=== PATIENT | female | born 1960 | race Caucasian/White ===

== ENCOUNTER 2016-12-30 05:33 | Inpatient (IN) ==
[2016-12-25 12:13] LABS: Basophils % 0.4 % (0.0-0.8); Eosinophils # 0.1 10*3/uL (0.0-0.87); Hemoglobin 13.3 GM/DL (12.0-16.0); Immature Granulocytes % 0.4 %; Immature Granulocytes Absolute 0.04 #; Lymphocytes # 3.4 10*3/uL (1.4-4.0); Lymphocytes % 37.5 % (21.3-54.2); Mean Corpuscular HGB Conc 33.3 GM/DL (32-36); Mean Corpuscular Hemoglobin 29 PG (27-34); Mean Corpuscular Volume 88.3 FL (87-102); Monocytes # 0.5 10*3/uL (0.11-0.8); Monocytes % 5.7 % (1.7-12.7); Platelet Count 425 T/CUMM (130-400); Red Blood Count 4.53 MC/CUMM (3.8-5.5); Red Cell Distribution Width 13.4 % (9.3-17.3); White Blood Count 9.1 T/CUMM (4-12)
[2016-12-25 12:25] LABS: PT Patient Result 10.4 SECS; Partial Thromboplastin Time 26.5 SECS (0-40)
--- NOTE | 2016-12-25 12:32 | EKG Report ---
Stationary ECG Study [facility] Test Date: 12/25/2016 12:32:04 PM Pat Name: ASHLEY MOY Department: Room: Gender: F Executive Candidate Developer: JACE UNDERWOOD [birth year] : 1960 Requested by: Felix Villela Order Number: [id number] Reading MD: SAMIR LEIGH Intervals Harmony Rate: 74 P: 74 CO: 164 QRS: 107 QRSD: 98 T: 69 QT: 386 QTc: 413 Interpretive Statements SINUS RHYTHM INDETERMINATE AXIS Electronically Signed On 12-25-16 13:14:54 CDT by SAMIR LEIGH [email or web address]
[2016-12-25 12:47] LABS: Apearance,Urine Slightly Hazy (Clear); Bilirubin,Urine Negative (Negative); Blood, Urine Negative (Negative); Glucose,Urine (UA) Negative (Negative); Ketones,Urine Negative (Negative); Mucus,Urine Occasional /LPF (Occasional); Nitrite,Urine Negative (Negative); Protein,Urine 30 MG/DL; RBC,Urine 4 /HPF (0-4); Squamous Epithelial Cell,Urine Occasional /HPF (0-10); Urine Color Yellow (Yellow); Urine Specific Gravity 1.016 (1.001-1.035); Urine Urobilinogen < 2.0 EU/DL (0.2-1.0); WBC,Urine 38 /HPF (0-6)
--- NOTE | 2016-12-25 12:50 | XRay Report ---
XR chest 2V Indication: Preop respiratory evaluation. Comparison: None. Technique: PA and lateral chest x-ray was performed. Findings: The heart size appears within normal limits. The mediastinal contour and hilar structures demonstrate no significant abnormalities. Calcified pulmonary nodule within the lateral aspect of the mid left lung is demonstrated. Partially calcified left hilar lymph nodes are present. Bones and soft tissues demonstrate no evidence of acute pathology. Impression: 1. No active cardiopulmonary disease. 2. Findings compatible prior granulomatous disease. 12/25/2016 12:37 PM PROCEDURE INTERPRETED AT [facility] DEPARTMENT OF RADIOLOGY Final Report Signed by: Dr. Juan Inman
[2016-12-25 12:58] LABS: Albumin 4.1 G/DL (3.4-5.0); Bilirubin,Total 0.6 MG/DL (0.2-1.0); Calcium 9.4 MG/DL (8.5-10.1); Osmolality,Calculated 279.3 MOS/KG (273-304); Potassium 4.3 MMOL/L (3.5-5.1); Total Protein 7.5 G/DL (6.4-8.3)
[2016-12-30] MEDS ORDERED: VANCOMYCIN INJ 1,000 MG in SODIUM CHLORIDE 0.9% 250 ML IV ONE (06:00)
[2016-12-30] MEDS ORDERED: SCOPOLAMINE 1.5 MG PATCH TRANSDERM ONE ×2 (06:22→06:26)
[2016-12-30] MEDS ORDERED: TRANEXAMIC ACID 1,000 MG/10 ML VIAL IV ONE (06:22)
[2016-12-30] MEDS ORDERED: SODIUM CHLORIDE 0.9% 100 ML IV ONE (06:26)
[2016-12-30] MEDS ORDERED: VANCOMYCIN 1,000 MG VIAL ONE (06:26)
[2016-12-30] MEDS ORDERED: ceFAZolin 1,000 MG VIAL ONE (06:26)
[2016-12-30] MEDS ORDERED: LACTATED RINGERS 1,000 ML IV SCH (06:30)
--- NOTE | 2016-12-30 06:32 | History and Physical Update ---
History and Physical Update - History and Physical H&P was reviewed, the patient examined and there: are no changes in the patients condition since last H&P was completed.
[2016-12-30] MEDS ORDERED: BACITRACIN OINT 0.9 GM PACK TOP ONE (06:43)
[2016-12-30] MEDS ORDERED: PROMETHAZINE 25 MG/1 ML VIAL ONE (06:57)
[2016-12-30] MEDS ORDERED: ONDANSETRON 4 MG/2 ML VIAL ONE (06:57)
[2016-12-30] MEDS ORDERED: GLYCOPYRROLATE 0.4 MG/2 ML VIAL ONE (06:57)
[2016-12-30] MEDS ORDERED: DEXAMETHASONE 10 MG/1 ML VIAL ONE (06:57)
[2016-12-30] MEDS ORDERED: PHENYLEPHRINE 1 MG/10 ML SYRINGE IV ONE (06:57)
[2016-12-30 08:40] LABS: Apearance,Urine CLEAR (Clear); Bilirubin,Urine Negative (Negative); Blood, Urine Negative (Negative); Glucose,Urine (UA) Negative (Negative); Ketones,Urine Negative (Negative); Mucus,Urine Occasional /LPF (Occasional); Nitrite,Urine Negative (Negative); Protein,Urine Negative; RBC,Urine 1 /HPF (0-4); Squamous Epithelial Cell,Urine Occasional /HPF (0-10); Urine Color Straw (Yellow); Urine Urobilinogen < 2.0 EU/DL (0.2-1.0); WBC,Urine <1 /HPF (0-6)
[2016-12-30] MEDS ORDERED: oxyCODONE IR 5 MG TABLET PO PRN ×2 (08:44)
[2016-12-30] MEDS ORDERED: diphenhydrAMINE CAP 25 MG CAPSULE PO PRN (08:44)
[2016-12-30] MEDS ORDERED: MAGNESIUM HYDROXIDE SUSP 30 ML UDCUP PO PRN (08:44)
[2016-12-30] MEDS ORDERED: ONDANSETRON 4 MG/2 ML VIAL IV PRN (08:44)
[2016-12-30] MEDS ORDERED: MIDAZOLAM 2 MG/2 ML VIAL ONE ×2 (08:48→08:49)
[2016-12-30] MEDS ORDERED: SODIUM CHLORIDE 0.9% 200 ML IV ONE (08:49)
[2016-12-30] MEDS ORDERED: LACTATED RINGERS 1,000 ML IV ONE (08:49)
[2016-12-30] MEDS ORDERED: fentaNYL 100 MCG/2 ML VIAL ONE (08:49)
[2016-12-30] MEDS ORDERED: KETAMINE 500 MG/10 ML VIAL ONE (08:49)
[2016-12-30] MEDS ORDERED: MORPHINE 2 MG/1 ML SYRINGE IV PRN ×2 (08:49)
--- NOTE | 2016-12-30 08:52 | Operative Note ---
Date of procedure: 12/30/16 Procedure: DIAGNOSIS: Bilateral hip primary osteoarthritis PROCEDURE: Right total hip arthroplasty (CPT#78651) SURGEON: Ameya ASST: Maximus Srinivasan ANESTHESIA: Spinal PROCEDURE and FINDINGS: After adequate anesthesia was induced, the patient was placed in lateral decubitus position. Left lower extremities prepped and draped in usual sterile fashion. Posteriolateral approach to the hip was made. Skin, subcutaneous tissue and deep fascia was incised longitudinally. Gluteus sera muscle belly was split in line with its fibers. Piriformis, external rotators and capsule were taken down as a single layer as an inverted L shaped capsulotomy. Hip was dislocated. Templated femoral neck cut was made. Acetabulum was prepared by sequentially reaming to 51 mm. A 52 mm Continuum acetabular shell was press-fit with excellent stability. 1 6.5 millimeter screw was placed with an excellent bite. 32 mm neutral Longevity liner was placed with a dome hole plug. Femur was prepared sequentially with the box osteotome, canal finder and sequential broaches to 14. Components were trialed. A size 14 Versys fiber metal tapered stem was press-fit. A 32-3.5 mm head was placed. The component was stable posteriorly and anteriorly. Capsule and external rotators were repaired with #5 Tycron. Deep fascia was closed with 0 Vicryl [id number] suture. Subcutaneous tissue was closed deep with a 2-0 Vicryl runner and superficially with 3-0 interrupted buried sutures. Skin was closed with rosie. Bacitracin and a sterile occlusive dressing was applied. Surgeon / Physician: Felix Hou Jr. Results - Labs CBC & BMP: 12/25/16 11:56 12/25/16 11:56 Discharge Plan - Discharge Medications No Action Amitriptyline [Elavil] 25 mg PO DAILY Atorvastatin [Lipitor] 10 mg PO BEDTIME Esomeprazole Magnesium [Nexium] 40 mg PO DAILY Ibuprofen 200 mg PO DIRECTED Multivitamin [One Daily Multivitamin] 1 each PO DAILY hydroCHLOROthiazide [Hydrochlorothiazide] 1 tablet PO DIRECTED - Follow Up or Referral - Forms/Instructions
[2016-12-30] MEDS ORDERED: hydroCHLOROthiazide 25 MG TABLET PO PRN (09:00)
--- NOTE | 2016-12-30 09:45 | XRay Report ---
XR hip 1V RT Indication: Joint replacement. Right hip 1 view: Right CANDICE is present with soft tissue emphysema and skin rosie overlying the operative site. Alignment is normal. No periprosthetic fracture. Impression: Anatomic alignment with immediate postop changes of CANDICE noted above. PROCEDURE INTERPRETED AT [facility] DEPARTMENT OF RAD[facility]OLOG[facility] Final Report Signed by: Brid John M.D.
[2016-12-30] MEDS: LACTATED RINGERS 1,000 ML IV SCH ×3 (10:06→16:00)
[2016-12-30] MEDS: AMITRIPTYLINE 25 MG TABLET PO SCH (10:06)
[2016-12-30] MEDS: DOCUSATE SODIUM 100 MG CAPSULE PO SCH ×2 (10:06→22:25)
[2016-12-30] MEDS: MULTIVITAMIN (CENTRUM) TABLET PO SCH (10:06)
[2016-12-30] MEDS: PANTOPRAZOLE 40 MG TABLET PO SCH (10:07)
[2016-12-30] MEDS: KETOROLAC 30 MG/1 ML VIAL IV SCH ×3 (10:07→22:24)
--- NOTE | 2016-12-30 11:12 | Anesthesia Post-Op ---
Anesthesia Post OP - Post Ansesthetic Evaluation Patient seen in post op: Yes Resp: within normal limits CV: within normal limits Mental: within normal limits Temp: within normal limits Bbsy-Rh-Mhigqnyrl: within normal limits Nausea and Vomiting: within normal limits Pain: within normal limits
[2016-12-30] MEDS: ACETAMINOPHEN 500 MG TABLET PO SCH ×2 (12:10→17:52)
[2016-12-30] MEDS: ceFAZolin 2,000 MG in PREMIX 1 EACH IV SCH ×2 (12:10→22:29)
--- NOTE | 2016-12-30 17:11 | Orthopedic Progress Note ---
Orthopedics - Subjective Interval history: Comfortable. Sitting up in a chair. She is noticed a difference in her hip. She can flex extend her toes and ankles without difficulty. Plan: Decrease IV fluids. Continue with orders. Exam - Constitutional Vitals: Period Temp Pulse Resp BP Sys/Fabian Pulse Ox Last 24 Hr 97.0 F-98.4 F 59-77 16-20 88-111/49-74 96-100 Results - Labs CBC & BMP: 12/25/16 11:56 12/25/16 11:56
[2016-12-30] MEDS: ATORVASTATIN 10 MG TABLET PO SCH (22:25)
[2016-12-30] MEDS ORDERED: ceFAZolin 2,000 MG in PREMIX 1 EACH IV ONE (22:30)
[2016-12-31] MEDS: ACETAMINOPHEN 500 MG TABLET PO SCH ×2 (01:27→05:52)
[2016-12-31] MEDS: FONDAPARINUX 2.5 MG/0.5 ML SYRINGE SUBCUT SCH (03:29)
[2016-12-31] MEDS: KETOROLAC 30 MG/1 ML VIAL IV SCH (03:30)
[2016-12-31 05:19] LABS: Basophils % 0.1 % (0.0-0.8); Hematocrit 31.9 VOL% (35.7-47.0); Hemoglobin 10.4 GM/DL (12.0-16.0); Immature Granulocytes % 0.5 %; Immature Granulocytes Absolute 0.07 #; Lymphocytes # 2.9 10*3/uL (1.4-4.0); Mean Corpuscular HGB Conc 32.6 GM/DL (32-36); Mean Corpuscular Hemoglobin 30 PG (27-34); Mean Corpuscular Volume 90.4 FL (87-102); Mean Platelet Volume 10.3 FL (9.6-12.0); Monocytes # 0.9 10*3/uL (0.11-0.8); Monocytes % 6.3 % (1.7-12.7); Neutrophils # 9.9 10*3/uL (1.4-7.4); Neutrophils % 72.1 % (38.7-73.9); Platelet Count 348 T/CUMM (130-400); Red Blood Count 3.53 MC/CUMM (3.8-5.5); Red Cell Distribution Width 13.6 % (9.3-17.3); White Blood Count 13.7 T/CUMM (4-12)
[2016-12-31 05:45] LABS: Calcium 8.6 MG/DL (8.5-10.1); Osmolality,Calculated 282.3 MOS/KG (273-304); Potassium 4.2 MMOL/L (3.5-5.1)
[2016-12-31] MEDS: LACTATED RINGERS 1,000 ML IV SCH (07:14)
[2016-12-31] MEDS: DOCUSATE SODIUM 100 MG CAPSULE PO SCH ×2 (08:00→21:13)
[2016-12-31] MEDS: AMITRIPTYLINE 25 MG TABLET PO SCH (08:00)
[2016-12-31] MEDS: MULTIVITAMIN (CENTRUM) TABLET PO SCH (08:00)
[2016-12-31] MEDS: PANTOPRAZOLE 40 MG TABLET PO SCH (08:00)
--- NOTE | 2016-12-31 11:20 | Pathology Report from [facility] ---
ACCESSION # : [id number] PATIENT NAME : Ashley Martinez ORDERING DR : JENNIFER UNDERWOOD MD CLINICAL HX: Right hip osteoarthritis POST-OP DX: Same SPECIMEN INFO: Right hip bone and tissue GROSS DESCRIPTION: The specimen is received in formalin labeled with the patient 's name Ashley Martinez consists of a femoral head measuring 4.0 x 4.8 x 6.0 cm. The articular surfaces are focally degenerative with an area of subchondral eburnation seen measuring 0.5 x 0.3 cm. The cut surface is smooth with no softening appreciated. Also receive din the specimen container is an aggregate of hemorrhagic red soft tissue measuring 13.5 x 2.5 cm. Inspector Wreath tissue is submitted in one cassette following decalcification. DIAGNOSIS FOR ASHLEY MARTINEZ: RIGHT HIP BONE AND TISSUE, TOTAL REPLACEMENT: Osteoarthritis. SERVICE DATE: 12/30/2016 REPORT DATE: 12/31/2016 PATHOLOGIST: Hazel Arce
[2016-12-31] MEDS: CELECOXIB 200 MG CAPSULE PO SCH (13:47)
[2016-12-31] MEDS: ATORVASTATIN 10 MG TABLET PO SCH (21:13)
[2017-01-01] MEDS: FONDAPARINUX 2.5 MG/0.5 ML SYRINGE SUBCUT SCH (03:45)
[2017-01-01 04:39] LABS: Basophils # 0.1 10*3/uL (0.0-0.2); Basophils % 0.5 % (0.0-0.8); Eosinophils # 0.1 10*3/uL (0.0-0.87); Eosinophils % 0.8 % (0.00-10.9); Hematocrit 32.5 VOL% (35.7-47.0); Hemoglobin 10.5 GM/DL (12.0-16.0); Immature Granulocytes % 0.3 %; Immature Granulocytes Absolute 0.03 #; Lymphocytes # 3.2 10*3/uL (1.4-4.0); Lymphocytes % 29.4 % (21.3-54.2); Mean Corpuscular HGB Conc 32.3 GM/DL (32-36); Mean Corpuscular Hemoglobin 29 PG (27-34); Mean Corpuscular Volume 90.3 FL (87-102); Mean Platelet Volume 10.6 FL (9.6-12.0); Monocytes # 0.7 10*3/uL (0.11-0.8); Monocytes % 6.7 % (1.7-12.7); Neutrophils # 6.8 10*3/uL (1.4-7.4); Neutrophils % 62.3 % (38.7-73.9); Platelet Count 344 T/CUMM (130-400); White Blood Count 10.9 T/CUMM (4-12)
--- NOTE | 2017-01-01 07:06 | Discharge Summary ---
Hospital Course - Hospital Course Hospital Course: Jolene Martinez was admitted after undergoing an uncomplicated right total hip arthroplasty. She received perioperative DVT and antimicrobial prophylaxis. She is discharged home in stable condition. Dressing is clean, dry and intact. Right lower extremities neurovascular change. Specialty Discharge - Follow Up or Referrals Follow up with: Felix Hou Jr., MD [Physician] - Discharge Plan - Discharge Data Disposition: Home Health Service Condition at Discharge: Stable Discharge Diet: advance to your usual diet Hygiene: may shower Weight Bearing at Discharge: weight bear as tolerated Driving: not until seen by doctor - Discharge Medications New HYDROcodone/ACETAMIN 7.5-325 [[place] 7.5-325] 2 tablet PO Q4H PRN #0 tablet PRN Reason: Moderate Pain unrelieved by 1 HYDROcodone/ACETAMIN 7.5-325 [[place] 7.5-325] 1 tablet PO Q4H PRN #0 tablet PRN Reason: Pain Moderate (4-7) Continue Amitriptyline [Elavil] 25 mg PO DAILY Atorvastatin [Lipitor] 10 mg PO BEDTIME Esomeprazole Magnesium [Nexium] 40 mg PO DAILY Ibuprofen 200 mg PO DIRECTED Multivitamin [One Daily Multivitamin] 1 each PO DAILY hydroCHLOROthiazide [Hydrochlorothiazide] 1 tablet PO DIRECTED - Follow Up or Referral Follow Up: Felix Hou Jr., MD [Physician] - - Forms/Instructions Additional Discharge Instructions: Posterior hip precautions for 3 months. Daily dry dressing changes. Arrange for walker and bedside commode for home use. Wear HARESH hose for 1 month. Follow-up appointment in 4 weeks. Discontinue rosie and Steri-Strip wound on January 11, 2017. Prescription for [place] 7.5 with 30 tablets was written. Take aspirin 325 mg by mouth for 21 days. Exam - Constitutional Vitals: Period Temp Pulse Resp BP Sys/Fabian Pulse Ox Last 24 Hr 97.4 F-98.9 F 67-84 15-19 99-114/56-65 90-95 Discharge Results Procedures and tests throughout hospitalization: Pending Orders 01/02/17 04:00 Comp Blood Count Auto Diff IN AM Labs on day of discharge: Labs from last 24 hours 01/01/17 03:47 WBC 10.9 RBC 3.60 L Hgb 10.5 L Hct 32.5 L MCV 90.3 MCH 29 MCHC 32.3 RDW 14.0 Plt Count 344 MPV 10.6 Neut % (Auto) 62.3 Lymph % (Auto) 29.4 Grimes % (Auto) 6.7 Eos % (Auto) 0.8 Baso % (Auto) 0.5 Neut # (Auto) 6.8 Lymph # (Auto) 3.2 Grimes # (Auto) 0.7 Eos # (Auto) 0.1 Baso # (Auto) 0.1 Immature Gran % 0.3 Nucleated RBC % 0.0 Immature Gran # 0.03 Nucleated RBCs # 0.00 DS: Provider Date of admission: 12/30/16 05:33 Primary care physician: Lupe Meza NP Attending physician on admission: Felix Hou Jr., Consults: 12/30/16 08:44 Consult to Case Mgmt/Social Srvs [CONS] Routine Reason for Case Mgmt/Social Srvs: Rehab Home Health Equipment Consult Comment: Bedside Commode, CPM, Walker Consult to Occupational Therapy [CONS] Routine Reason for Occupational Therapy: Evaluate and Treat Consult Comment: ADL's Consult to Physical Therapy [CONS] Routine Reason for Physical Therapy: Evaluate and Treat Gait Training Start Therapy: Today Consult Comment: wbat, posterior hip precautions 12/30/16 08:56 Consult to Pharmacy [CONS] Routine Reason for Pharmacy Consult: Adjust Meds Renal Funct Discharging clinician: Felix Hou Jr., Expected date of discharge: 01/01/17
[2017-01-01 07:09] VITALS: BP 108/52
[2017-01-01] MEDS: PANTOPRAZOLE 40 MG TABLET PO SCH (09:51)
[2017-01-01] MEDS: CELECOXIB 200 MG CAPSULE PO SCH (09:51)
[2017-01-01] MEDS: MULTIVITAMIN (CENTRUM) TABLET PO SCH (09:51)
[2017-01-01] MEDS: DOCUSATE SODIUM 100 MG CAPSULE PO SCH (09:52)
[2017-01-01] MEDS: AMITRIPTYLINE 25 MG TABLET PO SCH (09:52)
== END 2017-01-01 10:40 | disposition home health service (06) | DRG 470 ==
LOC: N.SDSINP 05:33 → N.3E 08:15
PROVIDERS: ADMIT Orthopaedic Surgery; ATTEND Orthopaedic Surgery

== ENCOUNTER 2020-12-24 16:36 | Inpatient (IN) ==
[2020-12-24] MEDS ORDERED: ACETAMINOPHEN 500 MG TABLET PO STA (19:37)
[2020-12-24] MEDS ORDERED: SODIUM CHLORIDE 0.9% 500 ML IV STA (19:37)
[2020-12-24 20:20] LABS: Hemoglobin 8.1 GM/DL (12.0-16.0); Lymphocytes # 1.2 10*3/uL (1.4-4.0); Mean Corpuscular HGB Conc 33.8 GM/DL (32-36); Mean Corpuscular Volume 95.2 FL (87-102); Mean Platelet Volume 13.4 FL (9.6-12.0); Monocytes % 51.8 % (1.7-12.7); NRBC # 0.03 10*3/uL; Neutrophils % 1.2 % (38.7-73.9); Red Blood Count 2.52 MC/CUMM (3.8-5.5); Red Cell Distribution Width 16.6 % (9.3-17.3); White Blood Count 2.5 T/CUMM (4-12)
[2020-12-24 20:22] LABS: Bacteria,Urine Occasional /HPF (Few); Bilirubin,Urine Negative (Negative); Blood, Urine Negative (Negative); Glucose,Urine (UA) Negative (Negative); Ketones,Urine Negative (Negative); Nitrite,Urine Negative (Negative); Protein,Urine Negative; RBC,Urine 2 /HPF (0-4); Squamous Epithelial Cell,Urine Occasional /HPF (0-10); Urine Appearance CLEAR (Clear); Urine Color Yellow (Yellow); Urine Specific Gravity 1.005 (1.001-1.035); Urine Urobilinogen < 2.0 EU/DL (0.2-1.0)
[2020-12-24 20:34] LABS: Platelet Count 29 T/CUMM (130-400)
[2020-12-24 20:40] LABS: PT Patient Result 11.6 SECS (9.8-11.9)
[2020-12-24 20:48] LABS: Albumin 3.5 G/DL (3.4-5.0); Bilirubin,Total 0.6 MG/DL (0.2-1.0); Calcium 9.6 MG/DL (8.5-10.1); Osmolality,Calculated 267.1 MOS/KG (273-304); Potassium 3.7 MMOL/L (3.5-5.1); Total Protein 7.9 G/DL (6.4-8.2)
[2020-12-24] MEDS ORDERED: VANCOMYCIN INJ 1,000 MG in SODIUM CHLORIDE 0.9% 250 ML IV STA ×2 (21:02→21:09)
[2020-12-24 21:14] LABS: Atypical Lymphocytes 3+; Band Neutrophils 2 % (0-10); Eosinophils 1 % (0-10); Lymphocytes 73 % (20-55); Platelet Estimate Decreased; Reactive Lymphocytes 3+; Segmented Neutrophils 3 % (50-85); Total Cells Counted 100
[2020-12-24] MEDS ORDERED: NICOTINE 21 MG/24 HR PATCH TRANSDERM PRN (21:45)
[2020-12-24] MEDS ORDERED: ACETAMINOPHEN 325 MG TABLET PO PRN (21:45)
[2020-12-24] MEDS ORDERED: DEXTROSE 50% 25 GM/50 ML VIAL IV PRN (21:45)
[2020-12-24] MEDS ORDERED: diphenhydrAMINE CAP 25 MG CAPSULE PO PRN (21:45)
[2020-12-24] MEDS ORDERED: ONDANSETRON 4 MG/2 ML VIAL IV PRN (21:45)
[2020-12-24] MEDS ORDERED: GLUCAGON 1 MG VIAL IM PRN (21:45)
[2020-12-24] MEDS ORDERED: SODIUM CHLORIDE 0.9% 1,000 ML IV SCH (22:00)
[2020-12-25] MEDS: CEFEPIME 1,000 MG in SODIUM CHLORIDE 0.9% 100 ML IV SCH ×4 (01:44→20:41)
[2020-12-25] MEDS ORDERED: CEFEPIME 1,000 MG in SODIUM CHLORIDE 0.9% 100 ML IV SCH (04:00)
[2020-12-25 06:43] LABS: Hematocrit 22.9 VOL% (35.7-47.0); Hemoglobin 7.8 GM/DL (12.0-16.0); Lymphocytes # 0.5 10*3/uL (1.4-4.0); Lymphocytes % 27.8 % (21.3-54.2); Mean Corpuscular HGB Conc 34.1 GM/DL (32-36); Mean Platelet Volume 13.8 FL (9.6-12.0); Monocytes % 70.5 % (1.7-12.7); NRBC # 0.03 10*3/uL; Neutrophils % 1.7 % (38.7-73.9); Red Blood Count 2.36 MC/CUMM (3.8-5.5); Red Cell Distribution Width 16.9 % (9.3-17.3); White Blood Count 1.8 T/CUMM (4-12)
[2020-12-25 06:51] LABS: Platelet Count 24 T/CUMM (130-400)
[2020-12-25 07:00] LABS: Bilirubin,Total 0.6 MG/DL (0.2-1.0); Calcium 9.4 MG/DL (8.5-10.1); Osmolality,Calculated 275.5 MOS/KG (273-304); Potassium 3.6 MMOL/L (3.5-5.1); Total Protein 6.9 G/DL (6.4-8.2)
[2020-12-25 07:19] LABS: Atypical Lymphocytes Few; Band Neutrophils 1 % (0-10); Hypochromasia 1+; Lymphocytes 47 % (20-55); Microcytosis 1+; Nucleated Red Blood Cells 2 (0-5); Platelet Estimate Decreased; Segmented Neutrophils 5 % (50-85); Total Cells Counted 100
[2020-12-25] MEDS ORDERED: PROCHLORPERAZINE 10 MG TABLET PO PRN (08:03)
[2020-12-25] MEDS: CHLORHEXIDINE 0.12% ORAL RINSE 60 ML BOTTLE SWISH/SPIT SCH ×2 (09:11→20:40)
[2020-12-25] MEDS: FLUCONAZOLE 200 MG TABLET PO SCH (09:11)
[2020-12-25] MEDS: MAGNESIUM OXIDE 400 MG TABLET PO SCH (09:11)
[2020-12-25] MEDS: allopurinoL 300 MG TABLET PO SCH (09:11)
[2020-12-25] MEDS: POTASSIUM CHLORIDE 20 MEQ TABLET PO SCH (09:11)
[2020-12-25] MEDS: ursodioL 300 MG CAPSULE PO SCH ×2 (09:11→20:39)
[2020-12-25] MEDS: VANCOMYCIN INJ 1,250 MG in SODIUM CHLORIDE 0.9% 250 ML IV SCH ×2 (10:40→21:35)
[2020-12-25] MEDS: ACYCLOVIR 200 MG CAPSULE PO SCH ×2 (10:41→20:39)
[2020-12-25] MEDS: NYSTATIN POWDER 15 GM BOTTLE TOP SCH ×2 (14:24→20:41)
[2020-12-25] MEDS: MICONAZOLE 100 MG VAG SUPP 7/BOX VAG SCH (20:39)
[2020-12-25] MEDS: AMITRIPTYLINE 25 MG TABLET PO SCH (20:39)
[2020-12-25] MEDS: ZALEPLON 5 MG CAPSULE PO SCH (20:39)
[2020-12-26] MEDS: CEFEPIME 1,000 MG in SODIUM CHLORIDE 0.9% 100 ML IV SCH ×4 (02:24→20:10)
[2020-12-26] MEDS ORDERED: HEPARIN LOCK FLUSH 500 UNIT/5 ML SYRINGE IV ONE (04:30)
[2020-12-26 05:36] LABS: Albumin 2.8 G/DL (3.4-5.0); Bilirubin,Total 0.8 MG/DL (0.2-1.0); Osmolality,Calculated 272.7 MOS/KG (273-304); Potassium 3.4 MMOL/L (3.5-5.1); Total Protein 6.6 G/DL (6.4-8.2)
[2020-12-26 07:54] LABS: Hematocrit 20.1 VOL% (35.7-47.0); Hemoglobin 6.5 GM/DL (12.0-16.0); Immature Granulocytes % 1.9 %; Immature Granulocytes Absolute 0.07 #; Lymphocytes # 0.8 10*3/uL (1.4-4.0); Lymphocytes % 22.6 % (21.3-54.2); Mean Corpuscular HGB Conc 32.3 GM/DL (32-36); Mean Platelet Volume 13.2 FL (9.6-12.0); Monocytes % 67.1 % (1.7-12.7); NRBC # 0.12 10*3/uL; Neutrophils % 8.4 % (38.7-73.9); Red Blood Count 1.99 MC/CUMM (3.8-5.5); Red Cell Distribution Width 17.2 % (9.3-17.3); White Blood Count 3.6 T/CUMM (4-12)
[2020-12-26 07:58] LABS: Platelet Count 42 T/CUMM (130-400)
[2020-12-26] MEDS ORDERED: SODIUM CHLORIDE 0.9% 1,000 ML IV SCH (08:00)
[2020-12-26 08:14] LABS: Total Cells Counted 100
[2020-12-26 08:15] LABS: Atypical Lymphocytes Few; Lymphocytes 31 % (20-55); Nucleated Red Blood Cells 5 (0-5); Platelet Estimate Decreased; Segmented Neutrophils 6 % (50-85)
[2020-12-26 08:16] LABS: Hypochromasia 2+; Microcytosis 1+
[2020-12-26] MEDS: ursodioL 300 MG CAPSULE PO SCH ×2 (08:54→20:09)
[2020-12-26] MEDS: AMITRIPTYLINE 25 MG TABLET PO SCH ×2 (08:54→20:09)
[2020-12-26] MEDS: MAGNESIUM OXIDE 400 MG TABLET PO SCH (08:54)
[2020-12-26] MEDS: VANCOMYCIN INJ 1,250 MG in SODIUM CHLORIDE 0.9% 250 ML IV SCH ×2 (08:54→21:16)
[2020-12-26] MEDS: FLUCONAZOLE 200 MG TABLET PO SCH (08:54)
[2020-12-26] MEDS: POTASSIUM CHLORIDE 20 MEQ TABLET PO SCH (08:54)
[2020-12-26] MEDS: allopurinoL 300 MG TABLET PO SCH (08:54)
[2020-12-26] MEDS: ACYCLOVIR 200 MG CAPSULE PO SCH ×2 (08:54→20:10)
[2020-12-26] MEDS: NYSTATIN POWDER 15 GM BOTTLE TOP SCH ×3 (08:55→20:10)
[2020-12-26] MEDS: CHLORHEXIDINE 0.12% ORAL RINSE 60 ML BOTTLE SWISH/SPIT SCH ×2 (08:55→20:10)
[2020-12-26] MEDS ORDERED: SODIUM CHLORIDE 0.9% 1,000 ML IV PRN (10:29)
[2020-12-26] MEDS: MICONAZOLE 100 MG VAG SUPP 7/BOX VAG SCH (20:09)
[2020-12-26] MEDS: ZALEPLON 5 MG CAPSULE PO SCH (20:10)
[2020-12-27] MEDS: CEFEPIME 1,000 MG in SODIUM CHLORIDE 0.9% 100 ML IV SCH ×4 (02:05→20:06)
[2020-12-27] MEDS ORDERED: HEPARIN LOCK FLUSH 500 UNIT/5 ML SYRINGE IV ONE (05:08)
[2020-12-27 06:24] LABS: Basophils % 0.2 % (0.0-0.8); Hematocrit 23.3 VOL% (35.7-47.0); Immature Granulocytes % 4.1 %; Immature Granulocytes Absolute 0.23 #; Lymphocytes # 0.9 10*3/uL (1.4-4.0); Lymphocytes % 16.7 % (21.3-54.2); Mean Corpuscular HGB Conc 34.3 GM/DL (32-36); Mean Platelet Volume 13.2 FL (9.6-12.0); Monocytes % 59.4 % (1.7-12.7); NRBC # 0.21 10*3/uL; Neutrophils % 19.6 % (38.7-73.9); Red Cell Distribution Width 17.1 % (9.3-17.3)
[2020-12-27 06:27] LABS: White Blood Count 5.6 T/CUMM (4-12)
[2020-12-27 06:28] LABS: Platelet Count 69 T/CUMM (130-400); Red Blood Count 2.48 MC/CUMM (3.8-5.5)
[2020-12-27 06:38] LABS: Albumin 2.5 G/DL (3.4-5.0); Calcium 8.7 MG/DL (8.5-10.1); Osmolality,Calculated 272.7 MOS/KG (273-304); Potassium 3.2 MMOL/L (3.5-5.1); Total Protein 6.5 G/DL (6.4-8.2)
[2020-12-27 07:07] LABS: Atypical Lymphocytes Few; Eosinophils 1 % (0-10); Lymphocytes 28 % (20-55); Nucleated Red Blood Cells 3 (0-5); Promyelocytes 1 %; Segmented Neutrophils 17 % (50-85); Total Cells Counted 100
[2020-12-27 07:08] LABS: Hypochromasia 1+; Microcytosis 1+; Polychromasia Slight
[2020-12-27 07:09] LABS: Platelet Estimate Decreased
[2020-12-27] MEDS: ursodioL 300 MG CAPSULE PO SCH ×2 (08:37→20:46)
[2020-12-27] MEDS: allopurinoL 300 MG TABLET PO SCH (08:37)
[2020-12-27] MEDS: MAGNESIUM OXIDE 400 MG TABLET PO SCH (08:37)
[2020-12-27] MEDS: ACYCLOVIR 200 MG CAPSULE PO SCH ×2 (08:37→20:46)
[2020-12-27] MEDS: POTASSIUM CHLORIDE 20 MEQ TABLET PO SCH (08:38)
[2020-12-27] MEDS: POTASSIUM CHLORIDE 20 MEQ TABLET PO PRN ×3 (08:39→14:01)
[2020-12-27] MEDS: FLUCONAZOLE 200 MG TABLET PO SCH (08:39)
[2020-12-27] MEDS: CHLORHEXIDINE 0.12% ORAL RINSE 60 ML BOTTLE SWISH/SPIT SCH ×2 (08:39→20:08)
[2020-12-27] MEDS: VANCOMYCIN INJ 1,250 MG in SODIUM CHLORIDE 0.9% 250 ML IV SCH ×2 (09:20→20:45)
[2020-12-27] MEDS: NYSTATIN POWDER 15 GM BOTTLE TOP SCH ×3 (09:22→20:08)
[2020-12-27] MEDS: MICONAZOLE 100 MG VAG SUPP 7/BOX VAG SCH (20:09)
[2020-12-27] MEDS: ZALEPLON 5 MG CAPSULE PO SCH (20:46)
[2020-12-27] MEDS: AMITRIPTYLINE 25 MG TABLET PO SCH (20:46)
[2020-12-28] MEDS: CEFEPIME 1,000 MG in SODIUM CHLORIDE 0.9% 100 ML IV SCH ×2 (02:04→08:34)
[2020-12-28 06:05] LABS: Basophils % 0.4 % (0.0-0.8); Hematocrit 24.9 VOL% (35.7-47.0); Hemoglobin 8.1 GM/DL (12.0-16.0); Immature Granulocytes % 4.2 %; Immature Granulocytes Absolute 0.33 #; Lymphocytes # 1.1 10*3/uL (1.4-4.0); Lymphocytes % 13.3 % (21.3-54.2); Mean Corpuscular HGB Conc 32.5 GM/DL (32-36); Mean Corpuscular Volume 98.8 FL (87-102); Mean Platelet Volume 12.7 FL (9.6-12.0); Monocytes % 47.8 % (1.7-12.7); NRBC # 0.28 10*3/uL; Neutrophils % 34.3 % (38.7-73.9); Platelet Count 123 T/CUMM (130-400); Red Blood Count 2.52 MC/CUMM (3.8-5.5); Red Cell Distribution Width 17.3 % (9.3-17.3)
[2020-12-28 06:32] LABS: Albumin 2.5 G/DL (3.4-5.0); Bilirubin,Total 0.9 MG/DL (0.2-1.0); Calcium 9.1 MG/DL (8.5-10.1); Osmolality,Calculated 270.8 MOS/KG (273-304); Potassium 3.6 MMOL/L (3.5-5.1); Total Protein 6.6 G/DL (6.4-8.2)
[2020-12-28 06:33] LABS: Band Neutrophils 3 % (0-10); Hypochromasia 1+; Lymphocytes 19 % (20-55); Microcytosis 1+; Nucleated Red Blood Cells 2 (0-5); Segmented Neutrophils 42 % (50-85); Total Cells Counted 100
[2020-12-28 06:34] LABS: Atypical Lymphocytes Few
[2020-12-28] MEDS: ursodioL 300 MG CAPSULE PO SCH (08:26)
[2020-12-28] MEDS: ACYCLOVIR 200 MG CAPSULE PO SCH (08:27)
[2020-12-28] MEDS: allopurinoL 300 MG TABLET PO SCH (08:27)
[2020-12-28] MEDS: POTASSIUM CHLORIDE 20 MEQ TABLET PO SCH (08:27)
[2020-12-28] MEDS: MAGNESIUM OXIDE 400 MG TABLET PO SCH (08:27)
[2020-12-28] MEDS: FLUCONAZOLE 200 MG TABLET PO SCH (08:27)
[2020-12-28] MEDS: CHLORHEXIDINE 0.12% ORAL RINSE 60 ML BOTTLE SWISH/SPIT SCH (08:40)
[2020-12-28] MEDS: VANCOMYCIN INJ 1,250 MG in SODIUM CHLORIDE 0.9% 250 ML IV SCH (10:01)
[2020-12-28 10:16] VITALS: BP 100/63
[2020-12-28] MEDS: NYSTATIN POWDER 15 GM BOTTLE TOP SCH (12:04)
== END 2020-12-28 12:30 | disposition home health service (06) | DRG 835 ==
LOC: N.ED 16:36 → N.EDINP 21:45 → SUATTDRO 21:45 → N.EDINP 23:17 → N.4E 23:30
PROVIDERS: ADMIT Internal Medicine; ATTEND Hospitalist